=== PATIENT | male | born 1945 | race Caucasian/White ===

== ENCOUNTER 2016-12-28 16:54 | Inpatient (IN) | payer OTHER, MEDICAID ==
[~2016-12-28] VITALS: Ht 167.6 cm; Wt 54.0 kg
[2016-12-28] VITALS (7 sets, daily range): BP systolic 75–113; BP diastolic 34–66; PULSE 84–99; RESP 13–32; TEMP 97–98.8; O2SAT 90–97
[~2016-12-28 16:54] MED LIST: DONE5TAB3 PO; FOLI-43 PO; FURO-149 PO; IPRA0.2S53 NEB; LACT10SO66 PO; PRO40 PO; PROP10TA10 PO; SPIR100T24 PO; THIA100T13 PO; TRAM50TA92 PO; VIS25 PO; ZOLP5TAB2 PO
--- NOTE | 2016-12-28 16:54 | NUR ---
Placed in room 2. Placed on boarder steam, blood pressure machine and pulse oximeter. To gown for exam. Side rails up. Report given to YVONNE Munguia.
--- NOTE | 2016-12-28 16:55 | NUR ---
Note undone in EDM - 12/28/16 at 1937 by ADILIA Pt report received from YVONNE Alonso. Pt sent from [facility] r/t abnormal labs. Pt AAOx2, even and non-labored respirations, BBS clear. Abdomen soft, distended, BSx4 normoactive. Pt with hx Hep C. Daughter present and states that pt needs a thorocentesis.
--- NOTE | 2016-12-28 16:55 | NUR ---
Pt report received from YVONNE Alonso. Pt sent from [facility] r/t abnormal labs. Pt AAOx2, even and non-labored respirations, BBS clear. Abdomen soft, distended, BSx4 normoactive. Pt with hx Hep C. Daughter present and states that pt needs a thorocentesis.
--- NOTE | 2016-12-28 17:25 | NUR ---
# 20 gauge angiocath placed to RAC. Use of asceptic technique. Opsite placed over site. Blood return noted. Blood for lab drawn from site. Flushed with 10 cc of normal saline. No evidence of infiltration noted. Patient tolerated well.
[2016-12-28] MEDS ORDERED: NS 500 ML IV ONE ×3 (17:30→21:15)
[2016-12-28 17:43] LABS: BASOPHILS % (AUTO) 0.3 % (0.0-2.0); HEMATOCRIT 43.1 % (36-54); HEMOGLOBIN 14.1 g/dL (14.0-18.0); LYMPHOCYTES # (AUTO) 0.4 K/uL (1.0-5.5); LYMPHOCYTES % (AUTO) 2.5 % (20.5-51.5); MEAN CORPUSCULAR HEMOGLOBIN 38 pg (27-31); MEAN CORPUSCULAR HGB CONC 33 % (32-36); MEAN CORPUSCULAR VOLUME 115 fL (79.0-98.0); MONOCYTES # (AUTO) 1.3 K/uL (0.0-1.0); NEUTROPHILS # (AUTO) 14.1 K/uL (1.8-7.7); NEUTROPHILS % (AUTO) 89.2 % (40.0-70.0); PLATELET COUNT (AUTO) 114 K/uL (130-430); RED BLOOD CELL COUNT(AUTO) 3.75 MIL/uL (4.2-6.2); RED CELL DISTRIBUTION WIDTH 15.2 % (9.0-15.0); WHITE BLOOD COUNT (AUTO) 15.8 K/uL (4.8-10.8)
[2016-12-28 17:48] LABS: ANION GAP 8 (5-15); CHLORIDE 97 mmol/L (98-107); CREATININE 2.69 mg/dL (0.55-1.30); GLUCOSE 98 mg/dL (70-99); POTASSIUM 4.9 mmol/L (3.5-5.1); SODIUM SERUM 129 mmol/L (136-145); UREA NITROGEN, BLOOD 45 mg/dL (8-21)
[2016-12-28 18:04] LABS: ALANINE AMINOTRANSFERASE 38 U/L (12-78); ALBUMIN 1.9 g/dL (3.4-4.8); ASPARTATE AMINOTRANSFERASE 60 U/L (10-37); CALCIUM 8.5 mg/dL (8.4-11.0); FREE T4 (FREE THYROXINE) 0.7 ng/dL (0.6-1.6); TOTAL BILIRUBIN 5.5 mg/dL (0.0-1.0); TOTAL PROTEIN, SERUM 8.5 g/dL (6.4-8.3)
--- NOTE | 2016-12-28 18:06 | NUR ---
Pt to CT via stretcher.
--- NOTE | 2016-12-28 18:20 | NUR ---
Pt returns from CT. No needs verbalized at this time.
[2016-12-28] MEDS ORDERED: MULT-1117 PO (18:25)
[2016-12-28] MEDS ORDERED: TUM500 PO (18:25)
--- NOTE | 2016-12-28 18:25 | NUR ---
Medication reconciliation completed with information provided by med list. Any prior medication reconciliation on file was reviewed and corrected.
[2016-12-28 18:29] LABS: BILIRUBIN,URINE 1+ (NEGATIVE); BLOOD, URINE NEGATIVE (NEGATIVE); CLARITY/URINE CLEAR (CLEAR); GLUCOSE,URINE NEGATIVE (NEGATIVE); KETONES,URINE TRACE (NEGATIVE); LEUKOCYTE ESTERASE ,URINE NEGATIVE (NEGATIVE); PH,URINE 5.5 (5.0-8.0); PROTEIN URINE NEGATIVE (NEGATIVE)
[2016-12-28] MEDS ORDERED: PIPERACILLIN/TAZO 3.375 GM in NS 50 ML IV ONE (18:30)
--- NOTE | 2016-12-28 18:30 | NUR ---
Patient will be admitted to care of Dr. Ritchie. Admitted to ICU unit. Will go to room 3. Belongings list completed. Summary report printed. Bedside report given to receiving RN.
[2016-12-28 18:38] LABS: COLOR,URINE AMBER (YELLOW); NITRITE, URINE NEGATIVE (NEGATIVE)
[2016-12-28 18:40] LABS: BACTERIA,URINE FEW /HPF (None Seen); MUCUS,URINE None Seen /LPF (None Seen); RBC,URINE NONE SEEN /HPF (0-3); WBC,URINE 0-3 /HPF (0-3)
--- NOTE | 2016-12-28 19:05 | NUR ---
ADMISSION Late entry due to pt. care. Pt. transferred via stretcher from ER. Report received from ER nurse. Adenike, pt.'s niece at bedside. Plan of care discussed. Belongings accounted for and sent home with family. Pt.'s upper dentures and underwear with pt. VSS. Fall risk band applied. Educated pt. on how to use call light for any needs. Safety measures in place. Bed alarm on. Will continue to monitor.
--- NOTE | 2016-12-28 20:23 | NUR ---
DR. THELMA Ritchie here making rounds and was notified regarding pt.'s lactic acid results of 6.3, 5.8; elevated WBC of 15.8. Dr. Ritchie entered new orders. Will carry out.
[2016-12-28] MEDS ORDERED: NOREPINEPHRINE 4 MG/4 ML VIAL IV ONE (21:05)
--- NOTE | 2016-12-28 21:12 | NUR ---
LEVOPHED Levophed infusing as ordered to right a/c 20g.
--- NOTE | 2016-12-28 21:20 | NUR ---
CALLED DR. MEYERS FOR TOMORROW'S CONSULT AND SPOKE WITH DI GONZALEZ IS ONCALL CALLED DR. CHAVEZ FOR TOMORROW'A CONSULT AND DR. CUI IS THE ONCALL. SPOKE WITH DI. CALLED DR. ALEMAN FOR TOMORROW'S CONSULT AND SPOKE WITH DI.
--- NOTE | 2016-12-28 21:26 | NUR ---
NS BOLUS X 2 First NS bolus given at 2026; second NS bolus given at 2125. Pt. tolerated well.
[2016-12-28] MEDS ORDERED: PANTOPRAZOLE SODIUM 40 MG/VIAL (PROTONIX) IVP ONE (21:30)
[2016-12-28] MEDS: NOREPINEPHRINE BITARTRATE 4 MG in NS 246 ML IV PRN (21:31)
[2016-12-28] MEDS: NACL 0.9% 1,000 ML IV SCH (21:45)
--- NOTE | 2016-12-28 21:50 | NUR ---
ARAGON CATHETER Late entry due to pt. care. #16 FR Aragon catheter with 10cc bulb inserted with use of sterile technique. Bulb inflated with 10 cc sterile water. Immediate return of 200 cc JOSEPH COLORED urine WITH SEDIMENTS noted. Bedside drainage bag placed below level of bladder. Urine sample collected and sent to lab at 2200. Pt tolerated procedure well.
[2016-12-28] MEDS ORDERED: VANCOMYCIN HCL 1 GM/NS PREMIX 250 ML IV ONE (22:00)
--- NOTE | 2016-12-28 22:00 | NUR ---
SCDS SCDS to bilateral lower extremities applied per MD orders.
[2016-12-28] MEDS ORDERED: VANCOMYCIN HCL 1000 MG/VIAL IV ONE (22:07)
[2016-12-28] MEDS ORDERED: PIPERACILLIN/TAZOBACTAM 3.375 GM/VIAL (ZOSYN) IV ONE (22:08)
--- NOTE | 2016-12-28 22:19 | NUR ---
VANCOMYCIN Vancomycin infusing as ordered. See EMAR.
--- NOTE | 2016-12-28 23:09 | NUR ---
BLOOD PRESSURE Pt.'s BP currently 108/66. Pt. is resting quietly in bed with no s/s of acute distress. Safety measures in place. Will continue to monitor.
[2016-12-29] VITALS (22 sets, daily range): BP systolic 75–118; BP diastolic 33–96; PULSE 73–92; RESP 14–30; TEMP 97.1–100.3; O2SAT 82–98; Ht 167.6 cm; Wt 54.0 kg
[2016-12-29] MEDS: PIPERACILLIN/TAZO 3.375/DEX-IS 50 ML IV SCH ×4 (00:09→17:45)
--- NOTE | 2016-12-29 00:30 | NUR ---
ZOSYN Due Zosyn IVPB infusing as ordered.
--- NOTE | 2016-12-29 01:04 | NUR ---
ROUNDS/SAFETY EDUCATION Bed alarm went off. Pt. states he "needs to pee." Educated pt. regarding safety measures and that he has a ojeda catheter in place with no need to get OOB. Bed alarm turned back on. Pt. in no s/s of acute distress. VSS. Will continue to monitor.
[2016-12-29] MEDS: NACL 0.9% 1,000 ML IV SCH ×3 (03:37→17:38)
--- NOTE | 2016-12-29 04:00 | NUR ---
SR WITH PVCS Pt. SR with PVCS on tele monitor. Reminded pt. not to touch his ojeda catheter; pt. cooperative at this time. Reeducated pt. on safety measures. Call light to right hand. No s/s of acute distress. Will continue to monitor.
[2016-12-29] MEDS ORDERED: NOREPINEPHRINE 4 MG/4 ML VIAL IV ONE (04:20)
--- NOTE | 2016-12-29 05:30 | NUR ---
CHG BATH CHG bath done. All linens change. Pt. tolerated well.
--- NOTE | 2016-12-29 06:16 | NUR ---
LAB AT BEDSIDE Engineering Aid at bedside drawing AM labs.
--- NOTE | 2016-12-29 06:29 | NUR ---
Nutrition Update Malachi Scale 15 noted. Pt admitted for hypotension. Diet: regular BMI: 19.4 kg/m2 RD to follow per nutrition care standards.
--- NOTE | 2016-12-29 06:30 | NUR ---
LAB/MIXING PAN TENDER Incomplete lab draw per medical accountant who stated pt. is uncooperative. He said he will send another medical accountant to draw.
--- NOTE | 2016-12-29 07:26 | NUR ---
ENDORSED CARE Pt. and report given to day shift nurse. All needs met throughout shift. Pt. is stable with no s/s of acute distress. Safety measures in place. Endorsed care to day shift nurse.
--- NOTE | 2016-12-29 07:37 | NUR ---
Handoff at bedside. Patient needs bp support and total care at this time.
[2016-12-29 08:24] LABS: INR 1.6 (0.80-1.20); PROTHROMBIN TIME 17.9 SECS (9.5-12.5)
[2016-12-29 08:32] LABS: ALANINE AMINOTRANSFERASE 33 U/L (12-78); ALBUMIN 1.1 g/dL (3.4-4.8); AMYLASE 25 U/L (0-100); ANION GAP 8 (5-15); ASPARTATE AMINOTRANSFERASE 75 U/L (10-37); CALCIUM 7.5 mg/dL (8.4-11.0); CHLORIDE 101 mmol/L (98-107); CREATININE 2.07 mg/dL (0.55-1.30); GLUCOSE 123 mg/dL (70-99); LIPASE 70 U/L (73-393); POTASSIUM 5.2 mmol/L (3.5-5.1); SODIUM SERUM 127 mmol/L (136-145); TOTAL BILIRUBIN 4.9 mg/dL (0.0-1.0); TOTAL PROTEIN, SERUM 6.8 g/dL (6.4-8.3); UREA NITROGEN, BLOOD 45 mg/dL (8-21)
[2016-12-29] MEDS: PANTOPRAZOLE SODIUM 40 MG/VIAL (PROTONIX) IVP SCH ×2 (08:43→21:13)
[2016-12-29 09:57] LABS: HEMATOCRIT 36.5 % (36-54); HEMOGLOBIN 12.6 g/dL (14.0-18.0); MEAN CORPUSCULAR HEMOGLOBIN 41 pg (27-31); MEAN CORPUSCULAR HGB CONC 35 % (32-36); MEAN CORPUSCULAR VOLUME 118 fL (79.0-98.0); PLATELET COUNT (AUTO) 92 K/uL (130-430); RED BLOOD CELL COUNT(AUTO) 3.11 MIL/uL (4.2-6.2)
[2016-12-29 10:17] LABS: BASOPHILS % (MANUAL) 0 % (0-2); EOSINOPHILS % (MANUAL) 0 % (0-7); LYMPHOCYTES % (MANUAL) 3 % (20-46); MONOCYTES % (MANUAL) 7 % (0-11)
[2016-12-29] MEDS: NOREPINEPHRINE BITARTRATE 4 MG in NS 246 ML IV PRN ×2 (13:39→21:17)
--- NOTE | 2016-12-29 13:46 | NUR ---
BP MAINTENANCE. HAS REQUEST FOR COMMODE. WILL MONITOR FOR NEEDS. OFFERED BED BHATT.
--- NOTE | 2016-12-29 18:59 | NUR ---
HANDOFF ROUNDS FOR NOC NURSE.
--- NOTE | 2016-12-29 19:30 | NUR ---
Initial note Received report from YVONNE Schneider. Received sleeping easily aroused, oriented to name only. No c/o pain. Respirations even and no-labored. Right forearm IV access intact with no redness or swelling to insertion site. Lasix drip infusing @ 8 mcg/kg/min. NS infusing @ 100 cc/hr. Livingston catheter intact draining dark yessi urine. Reoriented to place and time. Instructed on use of call light & to notify staff if in need of assistance. Needs further reinforcement. Call light within reach, bed alarm on.
--- NOTE | 2016-12-29 21:30 | NUR ---
Rounds Resting quietly, wakes up stating "there's something wrong with my bed" pointing to monitor lines. Explained purpose of lines that monitor his vitals. Stated, "does it help or does it kill you?" Reoriented to place and time. Unable to verbalize understanding, went back to sleep. Will continue to monitor.
[2016-12-30] VITALS (25 sets, daily range): BP systolic 82–125; BP diastolic 44–78; PULSE 69–95; RESP 11–35; TEMP 97–99.5; O2SAT 90–100
--- NOTE | 2016-12-30 00:21 | NUR ---
Rounds REsting with eyes closed, easily aroused. No c/o pain or discomfort. NO shortness of breath noted. BP 110/66, hr 83. Levophed drip @ 16 mcg/kg/min. Call light within reach. Bed alarm on.
[2016-12-30] MEDS: PIPERACILLIN/TAZO 3.375/DEX-IS 50 ML IV SCH ×5 (01:13→23:30)
[2016-12-30] MEDS: NOREPINEPHRINE BITARTRATE 4 MG in NS 246 ML IV PRN ×4 (02:28→23:30)
[2016-12-30] MEDS: NACL 0.9% 1,000 ML IV SCH ×2 (02:31→16:03)
--- NOTE | 2016-12-30 05:20 | NUR ---
HYGIENE/CHG BATH Dony soiled with light stool. sponge bath given, chg bath given. Gown and linen changed. Tolerated well.
--- NOTE | 2016-12-30 07:00 | NUR ---
Closing note Resting quietly, no c/o pain or discomfort. BP 114/56. Levophed drip @ 16 mcg/kg/min. Call light within reach. Fall precautions in place. Will give report to oncoming shift RN>
[2016-12-30] MEDS ORDERED: NOREPINEPHRINE 4 MG/4 ML VIAL IV ONE (08:15)
[2016-12-30 08:31] LABS: INR 2.3 (0.80-1.20); PROTHROMBIN TIME 25.8 SECS (9.5-12.5)
[2016-12-30] MEDS: PANTOPRAZOLE SODIUM 40 MG/VIAL (PROTONIX) IVP SCH ×2 (09:34→20:17)
[2016-12-30 10:10] LABS: HEMATOCRIT 38.9 % (36-54); HEMOGLOBIN 13.1 g/dL (14.0-18.0); MEAN CORPUSCULAR HEMOGLOBIN 39 pg (27-31); MEAN CORPUSCULAR HGB CONC 34 % (32-36); MEAN CORPUSCULAR VOLUME 116 fL (79.0-98.0); PLATELET COUNT (AUTO) 81 K/uL (130-430); RED BLOOD CELL COUNT(AUTO) 3.36 MIL/uL (4.2-6.2); RED CELL DISTRIBUTION WIDTH 15.7 % (9.0-15.0); WHITE BLOOD COUNT (AUTO) 15.1 K/uL (4.8-10.8)
[2016-12-30 10:16] LABS: ANION GAP 8 (5-15); CALCIUM 7.2 mg/dL (8.4-11.0); CHLORIDE 103 mmol/L (98-107); CREATININE 1.89 mg/dL (0.55-1.30); GLUCOSE 79 mg/dL (70-99); POTASSIUM 4.2 mmol/L (3.5-5.1); SODIUM SERUM 133 mmol/L (136-145); UREA NITROGEN, BLOOD 36 mg/dL (8-21)
[2016-12-30 10:21] LABS: ALANINE AMINOTRANSFERASE 33 U/L (12-78); ALBUMIN 1.6 g/dL (3.4-4.8); ASPARTATE AMINOTRANSFERASE 60 U/L (10-37); LIPASE 85 U/L (73-393); TOTAL PROTEIN, SERUM 7.5 g/dL (6.4-8.3)
[2016-12-30 11:22] LABS: BAND % (MANUAL) 2 % (0-6); BASOPHILS % (MANUAL) 0 % (0-2); EOSINOPHILS % (MANUAL) 0 % (0-7); LYMPHOCYTES % (MANUAL) 1 % (20-46); MONOCYTES % (MANUAL) 15 % (0-11)
[2016-12-30] MEDS: ALBUTEROL SULFATE 0.083% 2.5 MG/3 ML VIAL.NEB INH PRN ×2 (15:26→21:04)
[2016-12-30] MEDS: IPRATROPIUM BROM 0.5 MG/2.5 ML VIAL.NEB (ATROVENT) INH PRN ×2 (15:26→21:04)
[2016-12-30] MEDS: VANCOMYCIN HCL 1,000 MG in NS 250 ML IV SCH (20:17)
--- NOTE | 2016-12-30 20:25 | NUR ---
refuses scd's pt refuses to have scd's on even after explaining the importance of having them on. pt cussing at staff. will continue to monitor.
[2016-12-30] MEDS: TEMAZEPAM 15 MG CAPSULE PO SCH (20:56)
--- NOTE | 2016-12-30 21:24 | NUR ---
sleeping pill/agitated pt took sleeping pill as requested, cussing at staff. will continue to monitor. pt resting on his right side. continues to refuse scd's. fall risk precautions in place, call light within reach.
--- NOTE | 2016-12-30 22:29 | NUR ---
PT SHORT OF BREATH/MD AWARE DR. GUERRERO, MAKING ROUNDS FOR DR. RENEE, AWARE PT COMPLAINING OF SHORTNESS OF BREATH, PT HAS BREATHING TREATMENTS AND O2 SAT 96-98%. NOW ON 2L OF 02 VIA NASAL CANNULA WITH 02 SAT 98-99%. NO NEW ORDERS.
--- NOTE | 2016-12-30 22:31 | NUR ---
RESTING PT STATED HE FEELS BETTER NOW. WILL CONTINUE TO MONITOR. BED IN LOW POSITION, CALL LIGHT WITHIN REACH.
--- NOTE | 2016-12-30 23:41 | NUR ---
RESTING/NO SHORTNESS OF BREATH PT RESTING, VISUAL CHEST RISE AND FALL NOTED, 02 SAT 96% ON ROOM AIR. WILL CONTINUE TO MONITOR.
[2016-12-31] VITALS (24 sets, daily range): BP systolic 71–153; BP diastolic 35–117; PULSE 83–110; RESP 19–36; TEMP 97.5–98.8; O2SAT 92–98
[2016-12-31] MEDS: NACL 0.9% 1,000 ML IV SCH ×4 (02:03→17:32)
--- NOTE | 2016-12-31 05:00 | NUR ---
PT RESTING IN BED, NO SIGNS OF DISTRESS AT THIS TIME. VITAL SIGNS STABLE. OFFERED PT BED BATH. PT REFUSED.
--- NOTE | 2016-12-31 05:10 | NUR ---
LABOR MEDIATOR AT PT BEDSIDE. PT REFUSED TO HAVE BLOOD DRAWN. THE LABOR MEDIATOR SAID SHE WILL ASK HIM AGAIN LATER.
[2016-12-31] MEDS: PIPERACILLIN/TAZO 3.375/DEX-IS 50 ML IV SCH ×3 (05:22→17:31)
[2016-12-31] MEDS: NOREPINEPHRINE BITARTRATE 4 MG in NS 246 ML IV PRN ×3 (05:26→17:31)
--- NOTE | 2016-12-31 07:34 | NUR ---
GAVE SHIFT REPORT TO ONCOMING NURSE
--- NOTE | 2016-12-31 08:00 | NUR ---
AM Shift Assessment Received pt AAO x1, confused, uncooperative with assessment, making vulgar statements. Respirations even and unlabored, on RA. Pt refuses to wear nasal cannula, O2 sat on room air 98%. Skin warm and dry. Noted multiple scabs all over body. IVF in RFA 20 G intact, patent, with NS 100 ml/hr and levophed at 12 mcg/kg/min. Pt removed SCDs, states, "I don't want it." Educated pt on risks and benefits of SCDs, still refuse. Bed locked in lowest position. Call light in reach. Will continue to monitor.
[2016-12-31] MEDS: PANTOPRAZOLE SODIUM 40 MG/VIAL (PROTONIX) IVP SCH ×2 (08:07→20:16)
--- NOTE | 2016-12-31 08:30 | NUR ---
Patient Update Pt refused to eat breakfast, states, "I'm not hungry." Offered pt Boost to drink, pt states, "I'll drink it." Assisted pt to drink, pt states, "I don't want it anymore."
--- NOTE | 2016-12-31 13:00 | NUR ---
Patient Update Pt had 10% of meal tray. Pt still confused, resistive to care, and making vulgar statements.
--- NOTE | 2016-12-31 13:00 | NUR ---
Dr. Ritchie in to see pt.
[2016-12-31] MEDS: LACTULOSE 20 GM/30 ML UDC PO SCH ×2 (14:30→20:14)
--- NOTE | 2016-12-31 15:02 | NUR ---
Paracentesis Pt agreed for paracentesis done at bedside with Dr. Arechiga per Dr. Ritchie's orders. Consent signed and in chart. Fluid obtained for culture as well as 200 ml output of yellow fluid from LLQ. Will continue to monitor.
--- NOTE | 2016-12-31 15:43 | NUR ---
Patient Update Pt's niece, Enid, at bedside. Enid states she is "upset" because she wants "paracentesis to drain out all the fluid" and "demand for Dr. Ritchie to drain all of it" and making vulgar comments regarding pt's care. Removed IV d/t infiltration, catheter tip intact, bleeding controlled. Bed locked in lowest position. Call light in reach. Will continue to monitor.
--- NOTE | 2016-12-31 17:30 | NUR ---
PICC line Consent signed by pt's Adenike ochoa. Time out done. PICC placed in LUDWIG by Philip RUSSELL verified with CXR. Dressing dry and intact. Will continue to monitor.
[2016-12-31 17:57] LABS: APPEARANCE,SPUN,BODY FLUID CLEAR (CLEAR); BF APPEARANCE UNSPUN SLIGHTLY CLOUDY (CLEAR); BODY FLUID COLOR YELLOW (LT YELLOW); BODY FLUID SOURCE/ TYPE ASCITES; BODY FLUID TOTAL VOLUME 165 mL; EOSINOPHIL, BODY FLUID 0 %; LYMPHOCYTES, BODY FLUID 8 %; MONOCYTES,BODY FLUID 0 %; NEUTROPHIL, BODY FLUID 92 %; RBC, BODY FLUID 911 /uL; SOURCE/TYPE ,BODY FLUID PARACENTESIS; WBC, BODY FLUID 7711 /uL
--- NOTE | 2016-12-31 19:25 | NUR ---
Closing/Endorsement Pt remains in bed, confused. Pt had 20% of dinner meal. LUDWIG PICC intact, patent with IVF and levophed 8 mcg/kg/min. Bed locked in lowest position. Call light in reach. Endorsed plan of care to Randall RUSSELL and Celeste RUSSELL via SBAR and bedside round.
--- NOTE | 2016-12-31 20:00 | NUR ---
PM SHIFT ASSESSMENT Pt is Alert and Oriented to self. C/O of being cold, warm blankets were provided. He is on room air, respirations are symmetrical and unlabored. Pt is sinus rhythm with occasional PVCs. He is on a clear liquid diet, needs encouragement and assistance eating. Livingston catheter is secure, clean and draining to gravity. PICC line was inserted in the LUDWIG on 12/31/16 and found scant blood noted on the dressing. IVF are running. Pt is on contact precautions for MRSA in the nares. Scabs were noted across upper chest and infiltration is noted on RA, applied nitropaste. Will continue to monitor.
[2016-12-31] MEDS: TEMAZEPAM 15 MG CAPSULE PO SCH (20:14)
[2016-12-31] MEDS: DONEPEZIL HCL 5 MG TABLET (ARICEPT) PO SCH (20:14)
[2016-12-31] MEDS: NITROGLYCERIN 1 INCH (GM) OINT. TP SCH (20:16)
--- NOTE | 2016-12-31 20:16 | NUR ---
Note Pt's ID band scanned at bedside and then scanned IV protonix IVP by Celeste RUSSELL. Saved in eMAR. not shown in eMAR.
[2016-12-31 23:06] LABS: BODY FLUID GLUCOSE 68 mg/dL
[2017-01-01] VITALS (22 sets, daily range): BP systolic 89–142; BP diastolic 40–107; PULSE 85–121; RESP 15–31; TEMP 96.7–98.3; O2SAT 93–98
[2017-01-01] MEDS: PIPERACILLIN/TAZO 3.375/DEX-IS 50 ML IV SCH ×4 (00:36→17:29)
[2017-01-01] MEDS: NOREPINEPHRINE BITARTRATE 4 MG in NS 246 ML IV PRN ×4 (00:44→20:42)
[2017-01-01] MEDS: NACL 0.9% 1,000 ML IV SCH ×2 (04:18→15:17)
[2017-01-01 06:48] LABS: BASOPHILS % (AUTO) 0.1 % (0.0-2.0); HEMATOCRIT 34.2 % (36-54); HEMOGLOBIN 11.4 g/dL (14.0-18.0); LYMPHOCYTES # (AUTO) 0.5 K/uL (1.0-5.5); LYMPHOCYTES % (AUTO) 3.2 % (20.5-51.5); MEAN CORPUSCULAR HEMOGLOBIN 39 pg (27-31); MEAN CORPUSCULAR HGB CONC 33 % (32-36); MEAN CORPUSCULAR VOLUME 116 fL (79.0-98.0); MONOCYTES # (AUTO) 1.4 K/uL (0.0-1.0); MONOCYTES % (AUTO) 9.3 % (1.7-9.3); NEUTROPHILS # (AUTO) 12.9 K/uL (1.8-7.7); NEUTROPHILS % (AUTO) 87.4 % (40.0-70.0); PLATELET COUNT (AUTO) 57 K/uL (130-430); RED BLOOD CELL COUNT(AUTO) 2.94 MIL/uL (4.2-6.2); RED CELL DISTRIBUTION WIDTH 16.4 % (9.0-15.0); WHITE BLOOD COUNT (AUTO) 14.8 K/uL (4.8-10.8)
[2017-01-01 06:53] LABS: ALANINE AMINOTRANSFERASE 29 U/L (12-78); ALBUMIN 1.3 g/dL (3.4-4.8); ANION GAP 6 (5-15); ASPARTATE AMINOTRANSFERASE 59 U/L (10-37); CALCIUM 7.5 mg/dL (8.4-11.0); CHLORIDE 114 mmol/L (98-107); CREATININE 1.71 mg/dL (0.55-1.30); GLUCOSE 74 mg/dL (70-99); SODIUM SERUM 141 mmol/L (136-145); TOTAL BILIRUBIN 4.3 mg/dL (0.0-1.0); TOTAL PROTEIN, SERUM 6.2 g/dL (6.4-8.3); UREA NITROGEN, BLOOD 39 mg/dL (8-21)
--- NOTE | 2017-01-01 07:30 | NUR ---
AM Shift Assessment Received pt AAOx1, confused, in bed, trying to remove gown. Pt is uncooperative with assessment and making vulgar comments. Skin warm and dry. Dry scabs noted all over body, no active bleeding noted. PICC in LUDWIG intact, patent, no erythema noted with NS 100 ml/hr and levophed 14 mcg/kg/min. Livingston intact, patent, with dark yessi urine and low output. Abdomen large and distended. Pt refuse to put on SCDs. Bed locked in lowest position, alarm on. Call light in reach. Will continue to monitor.
--- NOTE | 2017-01-01 08:00 | NUR ---
MD/Patient Round Administered CHG bath to pt. Pt still confused and combative. Reoriented pt to time and place. Pt also seen by Dr. Mcginnis. Will continue with plan of care and monitoring.
[2017-01-01] MEDS: LACTULOSE 20 GM/30 ML UDC PO SCH ×4 (08:34→21:42)
[2017-01-01] MEDS: PANTOPRAZOLE SODIUM 40 MG/VIAL (PROTONIX) IVP SCH ×2 (08:34→21:39)
[2017-01-01] MEDS: MULTIVITAMINS TAB 1 TABLET PO SCH (08:34)
[2017-01-01] MEDS: NITROGLYCERIN 1 INCH (GM) OINT. TP SCH ×2 (08:35→21:42)
[2017-01-01] MEDS: LORazepam 2 MG/ML VIAL IVP PRN ×2 (08:55→13:13)
--- NOTE | 2017-01-01 10:40 | NUR ---
Dr. Perez in to see pt.
--- NOTE | 2017-01-01 14:00 | NUR ---
MD Round/Paracentesis Paracentesis done at bedside with pt. Pt medicated with ativan prior to procedure for agitation. Drained 2650 ml of output from abdomen. Dr. Ritchie also at bedside, left message with pt's Enid ochoa. Pt calm post procedure and resting. No acute distress noted. Will continue to monitor.
--- NOTE | 2017-01-01 14:48 | NUR ---
Nutrition F/U Admitting Diagnosis hypotension, sepsis (spontaneous bacterial peritonitis) Past Medical History liver cirrhosis (on liver transplant list), hepatic encephalopathy and ascites, chronic renal failure, COPD, chronic anemia Pertinent Medications protonix IV, piperacillin/tazobactam, vancomycin per pharmacy, NaCl IVF, norepinephrine, MVI, ativan, lactulose, vancomycin NaCl/IV Current Diet Order Clear Liquid (x2 days) Height (Feet) 5 feet Height (Inches) 6.00 inches Weight (Pounds) 119 pounds Weight (Calculated Kilograms) 53.136104 kilograms Patient Weight 53.977 kg Body Mass Index 19.20 kg/m2 (normal) [place]/Adjusted Body Weight IBW: 142 lb/54.6 kg; 84% IBW Estimated Needs 2222-6304 kcal/day (BEE x 1.2-1.5 for cirrhosis, COPD, and sepsis) Grams of Protein per Day 97-129 gm/day (1.5-2 gm/kg IBW for COPD and sepsis) Fluid Intake Goal Per MD (renal failure) Pertinent Labs 01/01/17: Na 141 WNL (improved), K 4 WNL (improved), BG 74 WNL (improved), BUN 39 H (improvin), CRE 1.71 H (improving), ALB 1.3 L (improving), WBC 14.8 H (improving), Hgb 11.4 L, Hct 34.2 L, Tbili 4.3 H, AST 59 H 12/29/16: Ammonia 49 H, Lipase 70 L 12/28/16: Lactic acid 5.8 H, BNP 150 H Other Subjective Data Physical Assessment: Pt seen resting in bed at time of visit. RN advised not to conduct interview d/t pt's combative behavior. Pt appeared undernourished for height. Abdominal distention noted. GI Integrity: Per EMR, abdomen is soft and distended with active bowel sounds. Abdominal distention d/t ascites. BM x0 12/31/16. BMx3 12/30/16. No reports of n/v. PO Intakes: PO records show 2x refusals and intakes average less than 15%. Appetite is poor. Per RN, pt was put on clear liquid diet d/t his elevated liver enzymes. Integumentary: Malachi score 15, jaundiced. Per EMR, abdominal dry scab, left lower right upper leg dry scab, left lower right upper arm bruise, and medial upper back dry scab. Plans/Procedures: Pt received paracentesis today and yesterday. Per RN, PICC line was placed 12/31 d/t IV infiltration. Per MD notes, continue diuresis and paracentesis. Pt is not yet meeting optimal nutritional needs. Pt is not appropriate for nutrition education. Problem, Etiology, Signs/Symptoms Malnutrition related to prolonged catabolic illness as evidenced by presence of ascites and severe muscle wasting, and estimated calorie/protein intake less than estimated nutritional needs. Altered nutrition related lab values related to liver and kidney dysfunction as evidenced by abnormal K, BUN, CRE, and AST lab values. Expected Outcomes or Goals * Monitor tolerance of diet, appetite, and PO intakes with goal of pt meeting at least 75% of estimated nutritional needs, labs trending WNL, normal GI function, skin integrity/weight maintenance Dietitian Recommendations * Recommend mechanical soft, renal standard diet with oral supplement Novasource Renal TID * Encourage PO intake as tolerated Follow Up High Risk: F/U in 2-3days Addendum: 01/01/17 at [address] CORRECTION: Pertinent Labs 01/01/17: Na 141 WNL (improved), K 4 WNL (improved), BG 74 WNL (improved), BUN 39 H (improving), CRE 1.71 H (improving), ALB 1.3 L (improving), WBC 14.8 H (improving), Hgb 11.4 L, Hct 34.2 L, Tbili 4.3 H, AST 59 H 12/30/16: Ammonia 22 WNL (improved), Lipase 85 WNL (improved) 12/28/16: Lactic acid 5.8 H, BNP 150 H Dietitian Recommendations * Consider mechanical soft, renal standard diet, Novasource Renal TID if/when medically appropriate * Encourage PO intake as tolerated RD reviewed/approved design engineering intern note. LP, RD
--- NOTE | 2017-01-01 16:22 | NUR ---
Patient Update Pt's niece, Enid, at bedside. Pt is calm, resting, and is "dressed in his own clothes from home for comfort," per Enid. Titrate levophed to 12 mcg/kg/min. Will continue to monitor.
[2017-01-01 17:10] LABS: ALBUMIN,BODY FLUID 0.2 g/dL (.)
--- NOTE | 2017-01-01 19:30 | NUR ---
Initial note Received sleeping, responsive to verbal stimuli. Oriented to name only. Opens eyes spontaneously for a short time. Speech garbled. Lue picc line intact & patent with NS infusing @ 100 cc/hr and Levophed drip @ 12 mcg/kg/min. Some scant dried blood noted around picc line insertion site. Livingston catheter intact with scant yessi urine noted. Hesitant with care, need encouragement Cooperative at this time with hesitation. Encouraged to drink liquid diet. Sipped approx 50 cc of ocean spray juice. Bed in low, locked position. Bed alarm on. Fall precautions in place. Call light within reach.
--- NOTE | 2017-01-01 19:43 | NUR ---
Closing/Endorsement Pt resting, calm, ate very little of dinner d/t drowsiness and confusion. IVF running, levophed at 12 mcg/kg/min via PICC, no erythema noted. Bed locked in lowest position. Bed alarm on. Endorsed plan of care to Sam RUSSELL via SBAR tool and bedside round.
--- NOTE | 2017-01-01 20:10 | NUR ---
Family Niece Ibis called. Updated on status. Instructed not to take off street clothes and encourage feeding of jello.
[2017-01-01] MEDS: TEMAZEPAM 15 MG CAPSULE PO SCH (21:42)
[2017-01-01] MEDS: DONEPEZIL HCL 5 MG TABLET (ARICEPT) PO SCH (21:42)
[2017-01-01] MEDS: VANCOMYCIN HCL 1,000 MG in NS 250 ML IV SCH (21:46)
--- NOTE | 2017-01-01 21:50 | NUR ---
Medications Asking for sleeping pill. Scheduled Restoril given with other po medications. Took approx 60 cc of cran-khari ocean spray juice. Refused lactulose.
[2017-01-02] VITALS (23 sets, daily range): BP systolic 98–147; BP diastolic 42–99; PULSE 86–101; RESP 16–48; TEMP 97.5–98.8; O2SAT 95–100
[2017-01-02] MEDS: PIPERACILLIN/TAZO 3.375/DEX-IS 50 ML IV SCH ×4 (00:21→17:30)
[2017-01-02] MEDS: LORazepam 2 MG/ML VIAL IVP PRN (02:50)
[2017-01-02] MEDS: NOREPINEPHRINE BITARTRATE 4 MG in NS 246 ML IV PRN ×2 (03:00→10:58)
[2017-01-02] MEDS: NACL 0.9% 1,000 ML IV SCH ×2 (04:50→15:16)
[2017-01-02 07:01] LABS: ALANINE AMINOTRANSFERASE 38 U/L (12-78); ALBUMIN 1.3 g/dL (3.4-4.8); ANION GAP 9 (5-15); ASPARTATE AMINOTRANSFERASE 82 U/L (10-37); CALCIUM 7.8 mg/dL (8.4-11.0); CHLORIDE 117 mmol/L (98-107); CREATININE 1.99 mg/dL (0.55-1.30); GLUCOSE 98 mg/dL (70-99); POTASSIUM 3.9 mmol/L (3.5-5.1); SODIUM SERUM 143 mmol/L (136-145); TOTAL BILIRUBIN 4.1 mg/dL (0.0-1.0); TOTAL PROTEIN, SERUM 6.4 g/dL (6.4-8.3); UREA NITROGEN, BLOOD 47 mg/dL (8-21)
--- NOTE | 2017-01-02 07:15 | NUR ---
Closing note Resting quietly, no apparent distress. Remains confused, oriented to name only. Levophed infusing @ 8 mcg/kg/min to left ue picc line. Livingston catheter intact draning yessi urine. Fall precautions in place. Will give report to oncoming shift RN.
--- NOTE | 2017-01-02 07:45 | NUR ---
BEGINNING OF SHIFT: Received patient sitting upright in bed, talking to nonsensically to self,mumbling.Patient confused,responds to name,able to follow simple command and make needs known.Patient on room air, lung sounds clear.Patient has double lumen PICC line to upper left arm,ports flushable with blood return, dressing dry and intact,no signs of infection, redness noted.Patient infusing NS at 100 ml/hr and levophed 8 mcg/min.Ascites and +1 non-pitting edema LT LE noted upon assessment.Bed locked,in lowest position,call light within easy reach,upper side rails x 2.Will continue to monitor.
--- NOTE | 2017-01-02 08:55 | NUR ---
DISCHARGE PLANNING DC Planning order for LTAC evaluation. Faxed DC Planning order to [facility] office [phone]. Notified Nereyda Wheeler Will follow up. Addendum: 01/02/17 at 1650 by Lucretia Serrano DP Spoke with Nereyda Wheeler patient accepted at [facility]. Order for evaluation and transfer. Summer will return call to nurses station with bed assignment. Called and spoke with patient don Rossi [place]ne [phone] who is agreeable with discharge plan and requested patient not be transferred till MD able to speak with Lilliana Díaz as scheduled tomorrow at 3pm. Transferred Enid call to nurses station as requested for update.
[2017-01-02] MEDS: MULTIVITAMINS TAB 1 TABLET PO SCH (09:30)
[2017-01-02] MEDS: PANTOPRAZOLE SODIUM 40 MG/VIAL (PROTONIX) IVP SCH ×2 (09:30→21:27)
[2017-01-02] MEDS: LACTULOSE 20 GM/30 ML UDC PO SCH ×3 (09:30→21:27)
[2017-01-02 09:37] LABS: HEMATOCRIT 36.8 % (36-54); HEMOGLOBIN 12.3 g/dL (14.0-18.0); MEAN CORPUSCULAR HEMOGLOBIN 39 pg (27-31); MEAN CORPUSCULAR HGB CONC 33 % (32-36); MEAN CORPUSCULAR VOLUME 118 fL (79.0-98.0); RED BLOOD CELL COUNT(AUTO) 3.12 MIL/uL (4.2-6.2); WHITE BLOOD COUNT (AUTO) 16.3 K/uL (4.8-10.8)
[2017-01-02] MEDS: NITROGLYCERIN 1 INCH (GM) OINT. TP SCH ×2 (09:39→21:29)
[2017-01-02 09:44] LABS: PLATELET COUNT (AUTO) 38 K/uL (130-430)
--- NOTE | 2017-01-02 10:00 | NUR ---
MD ROUNDING: Dr. Santiago at bedside.MD updated on pt condition.Pt turned and repositioned.Patient remains confused and disoriented.Alert to name only.Provided reality reorientation as needed.Will continue to monitor.
[2017-01-02 10:06] LABS: ATYPICAL LYMPHOCYTES % 0 % (0-0); BAND % (MANUAL) 0 % (0-6); BASOPHILS % (MANUAL) 0 % (0-2); EOSINOPHILS % (MANUAL) 0 % (0-7); LYMPHOCYTES % (MANUAL) 5 % (20-46); MONOCYTES % (MANUAL) 9 % (0-11)
--- NOTE | 2017-01-02 10:30 | NUR ---
MD ROUNDING: Dr. Mcginnis at bedside.Updated on pt condition.Updated plan of care.Will continue to monitor
[2017-01-02] MEDS: MORPHINE 2 MG/ML INJ. SYRINGE IVP PRN ×2 (10:50→20:18)
--- NOTE | 2017-01-02 12:00 | NUR ---
PT CARE: Patient encouraged to intake clear liquid diet.Requires maximum assistance.Poor motivation to eat.Pt turned and repositioned.Will continue to monitor.
--- NOTE | 2017-01-02 12:30 | NUR ---
MD ROUNDING: Dr. Ritchie at bedside.MD updated on patient condition.Received orders for armen consult.Pt continues to be monitored.
--- NOTE | 2017-01-02 14:00 | NUR ---
PT CARE: Bm x 1,cleaned.Patient provided oral care, CHG bath, linen change, turned and repositioned.Bed locked,in lowest position, call light within easy reach,HOB elevated, upper side rails x 2 up.Patient continues to be monitored.
--- NOTE | 2017-01-02 18:20 | NUR ---
MD ROUNDING: Dr Lindsay at bedside. updated on patient condition.Received new orders.Will continue to monitor.
--- NOTE | 2017-01-02 19:00 | NUR ---
Received patient arouseable. Confused and unable to follow command. Restless. B/P 102/74 with Levophed at 4 Mcg/min. Supportive measures given.
[2017-01-02] MEDS: cefTRIAXone 1 GM in D5W 50 ML IV SCH (19:23)
[2017-01-02] MEDS ORDERED: MUPIROCIN NASAL 2% OINT. 1 GM NS SCH (21:00)
[2017-01-02] MEDS: DONEPEZIL HCL 5 MG TABLET (ARICEPT) PO SCH (21:27)
[2017-01-02] MEDS: TEMAZEPAM 15 MG CAPSULE PO SCH (21:28)
[2017-01-02] MEDS: MUPIROCIN 2% TOPICAL OINTMENT 22 GM TP SCH (21:47)
[2017-01-02] MEDS: metroNIDAZOLE 250 mg/NS 50 ML IV SCH (21:47)
[2017-01-03] VITALS (19 sets, daily range): BP systolic 90–152; BP diastolic 46–93; PULSE 74–92; RESP 16–28; TEMP 97.6–98.6; O2SAT 92–100
--- NOTE | 2017-01-03 | NUR ---
Condition unchanged. V/S stable. No distress noted.
[2017-01-03] MEDS: NACL 0.9% 1,000 ML IV SCH ×2 (00:16→12:34)
[2017-01-03] MEDS: NOREPINEPHRINE BITARTRATE 4 MG in NS 246 ML IV PRN (00:32)
[2017-01-03] MEDS: LORazepam 2 MG/ML VIAL IVP PRN ×2 (01:40→14:49)
--- NOTE | 2017-01-03 05:18 | NUR ---
Patient awake and no distress noted. B/P labile. Levophed decreased to 3 mcg/min but B/P dropped to 65/36 Levophed increased to 4 mcg/min.
[2017-01-03] MEDS: metroNIDAZOLE 250 mg/NS 50 ML IV SCH ×2 (05:58→13:22)
[2017-01-03 06:41] LABS: ANION GAP 9 (5-15); CALCIUM 7.9 mg/dL (8.4-11.0); CHLORIDE 119 mmol/L (98-107); CREATININE 2.08 mg/dL (0.55-1.30); GLUCOSE 103 mg/dL (70-99); POTASSIUM 4.1 mmol/L (3.5-5.1); SODIUM SERUM 143 mmol/L (136-145); UREA NITROGEN, BLOOD 52 mg/dL (8-21)
[2017-01-03 06:46] LABS: BASOPHILS # (AUTO) 0.2 K/uL (0.0-0.2); BASOPHILS % (AUTO) 1.1 % (0.0-2.0); HEMATOCRIT 33.9 % (36-54); HEMOGLOBIN 11.6 g/dL (14.0-18.0); LYMPHOCYTES # (AUTO) 0.4 K/uL (1.0-5.5); LYMPHOCYTES % (AUTO) 2.5 % (20.5-51.5); MEAN CORPUSCULAR HEMOGLOBIN 40 pg (27-31); MEAN CORPUSCULAR HGB CONC 34 % (32-36); MEAN CORPUSCULAR VOLUME 116 fL (79.0-98.0); MONOCYTES # (AUTO) 0.8 K/uL (0.0-1.0); MONOCYTES % (AUTO) 5.1 % (1.7-9.3); NEUTROPHILS # (AUTO) 14.1 K/uL (1.8-7.7); NEUTROPHILS % (AUTO) 91.3 % (40.0-70.0); RED BLOOD CELL COUNT(AUTO) 2.92 MIL/uL (4.2-6.2); WHITE BLOOD COUNT (AUTO) 15.5 K/uL (4.8-10.8)
[2017-01-03 07:34] LABS: PLATELET COUNT (AUTO) 36 K/uL (130-430)
--- NOTE | 2017-01-03 07:45 | NUR ---
BEGINNING OF SHIFT ASSESSMENT: Patient presents as 71 year old frail looking male who appears older than stated age, awake and alert to name only, responds to simple commands,becomes easily agitated when approached.Patient lungs are clear through out.Patient continues to require levophed drip at rate of 4 mcg/min to support blood pressure.Also infusing NS at 100 mls/hr to LT upper arm PICC.All ports patent, flushable with blood return,dressing dry and intact,no redness, infection noted.Edema + 1 non-pitting to left lower extremity, abdomen distended and firm, weeping to left forearm.Bed locked,in lowest position,call light within easy reach,HOB elevated,upper side rails x 2 up.Will continue to monitor.
[2017-01-03] MEDS: MULTIVITAMINS TAB 1 TABLET PO SCH (09:00)
[2017-01-03] MEDS: LACTULOSE 20 GM/30 ML UDC PO SCH ×2 (09:00→14:34)
[2017-01-03] MEDS: MUPIROCIN 2% TOPICAL OINTMENT 22 GM TP SCH (09:00)
--- NOTE | 2017-01-03 10:00 | NUR ---
PT update: Family at bedside.Updated on pt condition.Pt turned, repositioned.Provided reality reorientation.Educated on safety.Bed locked,in lowest position,call light within easy reach,HOB elevated,upper side rails x 2 up.Will continue to monitor.
[2017-01-03] MEDS: PANTOPRAZOLE SODIUM 40 MG/VIAL (PROTONIX) IVP SCH (10:29)
[2017-01-03] MEDS: NITROGLYCERIN 1 INCH (GM) OINT. TP SCH (10:32)
[2017-01-03] MEDS: MORPHINE 2 MG/ML INJ. SYRINGE IVP PRN (10:33)
--- NOTE | 2017-01-03 11:00 | NUR ---
DISCHARGE PLANNING Spoke with Nereyda Wheeler currently working on ICU bed availability at [facility] for patient discharge. WALT Guadalupe made aware. Addendum: 01/03/17 at 1455 by Lucretia Serrano DP Spoke with Nereyda Wheeler facility still has no ICU bed availability at this time. DCP will continue to follow up. Addendum: 01/03/17 at 1524 by Lucretia Serrano DP Met with patient sister Lilliana and don Rossi at patient bedside. answered all questions and concerns regarding discharge plan. Lilliana was requested placement at [facility] in [place] and was explained the facilities and their levels of care for patient. Both are agreeable with plan to [facility] and made aware WIP will keep them updated. Lilliana and Enid did not have any further questions pertaining to discharge plan at this time.
--- NOTE | 2017-01-03 13:15 | NUR ---
ULTRA SOUND: ULTRA SOUND tech at bedside.Pt tolerating procedure.Will continue to monitor.
--- NOTE | 2017-01-03 14:54 | NUR ---
Nutrition F/U Admitting Diagnosis hypotension, sepsis (spontaneous bacterial peritonitis) Past Medical History liver cirrhosis (on liver transplant list), hepatic encephalopathy and ascites, chronic renal failure, COPD, chronic anemia Pertinent Medications protonix IV, vancomycin per pharmacy, NaCl IVF, morphine, ceftiaxone sodium, norepinephrine, MVI, ativan, lactulose, vancomycin NaCl/IV Current Diet Order Clear Liquid (x4 days) Height (Feet) 5 feet Height (Inches) 6.00 inches Weight (Pounds) 119 pounds Weight (Calculated Kilograms) 53.609949 kilograms Patient Weight 53.977 kg Body Mass Index 19.20 kg/m2 (normal) [place]/Adjusted Body Weight IBW: 142 lb/54.6 kg; 84% IBW Estimated Needs 7416-1569 kcal/day (BEE x 1.2-1.5 for cirrhosis, COPD, and sepsis) Grams of Protein per Day 97-129 gm/day (1.5-2 gm/kg IBW for COPD and sepsis) Fluid Intake Goal Per MD (renal failure) Pertinent Labs 01/03/17: WBC 15.5 H, Hgb 11.6 H, Hct 33.9 H, BUN 52 H, CRE 2.08 H, BG 103 H 01/02/17: ALB 1.3 L, Tbili 4.1 H, AST 82 H 12/28/16: Lactic acid 5.8 H, BNP 150 H Other Subjective Data Physical Assessment: Pt seen sleeping in bed at time of visit. Pt still combative per RN. Abdominal distention noted. Pt has noticeable wasting and indentation to the temporal regions, sunken orbital regions, and protruding cheek bones and chin. Per RN notes, +1 non-pitting edema to lower extremity. GI Integrity: Per EMR, abdomen is distended and firm with active bowel sounds. Abdominal distention d/t ascites. Per RN, last BM was 2 days ago. No reports of any n/v/d/c. PO Intakes: PO records average less than 15%. Appetite is very poor. Per RN, pt ate about 25% of last tray with maximum encouragement. Pt may be a candidate for PPN. Integumentary: Malachi score 13: dry scabs to abdomen and left and right upper legs, bruises to the left lower and right upper arms and medical upper back. Plans/Procedures: Pt received paracentesis 12/31 and 01/01. Possible DC to [facility]. Pending ultrasound. Per RN, possible liver cancer. Pt is not yet meeting optimal nutritional needs. Pt is not appropriate for nutrition education. Problem, Etiology, Signs/Symptoms Malnutrition related to prolonged catabolic illness as evidenced by presence of ascites and severe muscle wasting, and estimated calorie/protein intake less than estimated nutritional needs. Altered nutrition related lab values related to liver and kidney dysfunction as evidenced by abnormal K, BUN, CRE, and AST lab values. Expected Outcomes or Goals * Monitor tolerance of diet, appetite, and PO intakes with goal of pt meeting at least 75% of estimated nutritional needs, labs trending WNL, normal GI function, skin integrity/weight maintenance Dietitian Recommendations * Consider mechanical soft, renal standard diet, Novasource Renal TID if/when medically appropriate. * If diet is not advanced to solid food diet by next follow up, consider alternative nutrition support. Follow Up High Risk: F/U in 2-3 days Addendum: 01/03/17 at 1606 by Khanh Hernandez DI Corrections: Expected Outcomes or Goals 1. Monitor PO intakes with goal of meeting 30-40% of estimated needs with acceptable tolerance 2. Labs trending within normal limits 3. Maintain weight 4. Improved skin integrity 5. Improved GI function 6. Monitor for diet advancement by follow-up Dietitian Recommendations * Continue clear liquid diet per MD. Note pt has been on clear liquid diet x4 days, not meeting optimal nutritional needs * Consider advance as tolerated to mechanical soft diet Boost Plus TID if/when medically appropriate. * If diet is not advanced to solid food diet by next follow up, consider alternative nutrition support as pt will be on clear liquid diet x6 days. RD reviewed/approved analysis internship note. ELVIA JOHNSON
--- NOTE | 2017-01-03 15:40 | NUR ---
MD ROUNDING: Dr. Ritchie at bedside.Speaking with patient family.MD updated on condition.Bed locked,in lowest position, call light within easy reach, upper side rails x 2.Will continue to monitor.
--- NOTE | 2017-01-03 16:00 | NUR ---
PT DNR: Dr. Ritchie spoke with family of patient.Per family request, pt status changed to do not resuscitate status.Family request current plan of care to be followed and continued.Family verbalized understanding and agreed to DO NOT RESUSCITATE status.
--- NOTE | 2017-01-03 18:00 | NUR ---
PT update: Patient restless in bed, confused, mumbling to self, remains confused and disoriented.Patient safety maintained.Bed locked,in lowest position,call light within easy reach,HOB elevated,upper side rails x 2 up.Pt continues to be monitored.
[2017-01-03] MEDS: cefTRIAXone 1 GM in D5W 50 ML IV SCH (18:29)
--- NOTE | 2017-01-03 19:15 | NUR ---
CLOSING NOTE: Report and plan of care given via SBAR method to YVONNE Judd. Patient resting in bed, eyes closed, bed in lowest position, locked, upper side rails x 2 up,HOB elevated,call light within easy reach.Endorsed care to YVONNE Judd.
--- NOTE | 2017-01-03 19:50 | NUR ---
Beginning of shift assessment Pt lying in bed w eyes closed. Arouses to verbal/tactile stimulation. Pt lethargic, does not follow commands. Bilalteral pupils sluggish. Respirations even and unlabored, congestion noted to anterior upper lobes. Excessive secretions noted in mouth, oral suctioning and oral care provided. Frothy sputum noted. LUDWIG PICC infusing IVF and Levophed @ 8 mcg/min. No s/s of infiltration or infection noted. Pt SBP >100, HR 72. [place] catheter draining dark yessi urine to gravity, drainage bag placed below bladder level. Extremities cold and mottling noted to knees. Bed in low position for safety, call light within reach, will continue monitor.
--- NOTE | 2017-01-03 20:30 | NUR ---
Change of condition Pt respirations decreasing, gasping. Pale in color. Heart rate decreasing, all extremities cold, mottling noted to knees, unable to obtain pulse ox on multiple extremities. Pt comfort maintained. Will notify family regarding pt change in condition.
--- NOTE | 2017-01-03 20:35 | NUR ---
Family notified Spoke w niece, Enid, notified her regarding pt decline in condition. Niece reports she is on her way to see pt.
--- NOTE | 2017-01-03 21:00 | NUR ---
Family bedside Niece bedside grieving appropriately, crying over body. Emotional support rendered. Niece thankful. Will continue to offer emotional support as needed.
--- NOTE | 2017-01-03 21:25 | NUR ---
[facility] notified re pt . Spoke with Lee. Pt information given. Reports pt is not a candidate due to Hep C. Referral number [id number].
--- NOTE | 2017-01-03 21:30 | NUR ---
Corrections Specialist Corrections Specialist, Deputy Vasquez, notified re pt . [place] reports pt is not a coroners case, case closed.
--- NOTE | 2017-01-03 21:50 | NUR ---
Mortuary Niderrek reports she does not have a mortuary in place and that [facility]. Offered niece information on [facility] and niece agrees to have body held there until body can be donated. [facility] contacted for flower picker, spoke marco Wu, ETA 60-90 min.
--- NOTE | 2017-01-03 22:10 | NUR ---
Post mortem care Post mortem care provided per hospital protocol.
--- NOTE | 2017-01-03 23:07 | NUR ---
Mortuary bedside [facility] artist's representative present to apple picking supervisor body. Body released.
== END 2017-01-03 23:27 | disposition expired | DRG 871 ==
LOC: SED 16:54 → SIC 18:30
PROVIDERS: ADMIT Internal Medicine; ATTEND Internal Medicine
PROC: 0W9G3ZZ Drainage of Peritoneal Cavity, Percutaneous Approach (ICD-10-PCS; principal; 2016-12-29)
PROC: 02HV33Z Insertion of Infusion Device into Superior Vena Cava, Percutaneous Approach (ICD-10-PCS; 2016-12-31)
PROC: B548ZZA Ultrasonography of Superior Vena Cava, Guidance (ICD-10-PCS; 2016-12-31)
PROC: BW40ZZZ Ultrasonography of Abdomen (ICD-10-PCS; 2016-12-31)
DX: A41.9 Sepsis, unspecified organism (principal); N17.0 Acute kidney failure with tubular necrosis; K65.2 Spontaneous bacterial peritonitis; G93.41 Metabolic encephalopathy; R65.21 Severe sepsis with septic shock; K76.6 Portal hypertension; D68.9 Coagulation defect, unspecified; K72.90 Hepatic failure, unspecified without coma; Z66 Do not resuscitate; N18.9 Chronic kidney disease, unspecified; K70.31 Alcoholic cirrhosis of liver with ascites; E86.0 Dehydration; I12.9 Hypertensive chronic kidney disease with stage 1 through stage 4 chronic kidney disease, or unspecified chronic kidney disease; J44.9 Chronic obstructive pulmonary disease, unspecified; F10.10 Alcohol abuse, uncomplicated; D73.1 Hypersplenism; D69.6 Thrombocytopenia, unspecified; N62 Hypertrophy of breast; Z87.891 Personal history of nicotine dependence; Z79.899 Other long term (current) drug therapy; Z86.19 Personal history of other infectious and parasitic diseases
CPT/HCPCS: 36415; 49083; 71010; 74000-TC; 76700-TC; 80048; 80053; 81000-TC; 82042; 82105; 82140-TC; 82150; 82150-TC; 82947-TC; 83605; 83690-TC; 83880; 84157-TC; 84439; 84484; 85007; 85025; 85027; 85610-TC; 85730-TC; 87040-TC; 87070-TC; 87081; 87086; 87230-TC; 88108; 89051-TC; 89060-TC; 93005; 94640; 96365; 99285; C1729; C1751; C9113; J0696; J2060; J2270; J2543; J3370; J3490; J7030; J7040; J7050; J7060